=== PATIENT | female | born 1965 | race Caucasian/White ===

== ENCOUNTER 2016-07-30 09:11 | Day surgery (SDC) | payer OTHER ==
[~2016-07-30] VITALS: Ht 175.3 cm; Wt 111.9 kg
[~2016-07-30 09:11] MED LIST: CLARITIN
[2016-07-30 09:48] VITALS: BP 112/90; PULSE 71; TEMP 97.3
[2016-07-30] MEDS ORDERED: PROZAC 20MG20 MG PO (10:05)
[2016-07-30] MEDS ORDERED: NEXIUM 20MG20 MG PO (10:06)
[2016-07-30] MEDS ORDERED: MULTI VITAMINS1 TAB PO (10:06)
[2016-07-30] MEDS ORDERED: OSCAL 500 TAB500 MG PO (10:06)
[2016-07-30 10:55] VITALS: BP 190/94; PULSE 86; TEMP 98
[2016-07-30 11:10] VITALS: BP 114/82; PULSE 86
[2016-07-30 11:25] VITALS: BP 125/87; PULSE 77
[2016-07-30 13:34] VITALS: BP 118/82; PULSE 74
== END 2016-07-30 11:45 | disposition home or self-care (01) ==
LOC: SDCO 09:11
DX: Z12.11 Encounter for screening for malignant neoplasm of colon (principal); K63.5 Polyp of colon
CPT/HCPCS: J2250; J2405; J3010